=== PATIENT | male | born 1970 | race Two or more races ===

== ENCOUNTER 2021-03-26 20:39 | Emergency (ER) | payer SELFPAY ==
[~2021-03-26] VITALS: Ht 177.8 cm; Wt 79.5 kg
[2021-03-26] MEDS ORDERED: OMEP20CA16 PO (21:02)
[2021-03-26 21:24] LABS: BASO % 1 % (0-3); EOS % 0 % (0-3); HEMATOCRIT 41.1 % (39.0-53.0); LYMPH % 19 % (24-48); MEAN CORPUSCULAR HEMOGLOBIN 28 pg (25-35); MEAN CORPUSCULAR HGB CONC 34 g/dL (31-37); MEAN CORPUSCULAR VOLUME 83 fL (79-100); MONO # 0.6 x10^3/uL (0.0-1.1); MONO % 12 % (0-9); NEUT # 3.5 x10^3/uL (1.8-7.7); NEUT % 68 % (31-73); PLATELET COUNT 224 x10^3/uL (140-400); RED BLOOD COUNT 4.97 x10^6/uL (4.30-5.70); RED CELL DISTRIBUTION WIDTH 13.9 % (11.5-14.5); WHITE BLOOD COUNT 5.1 x10^3/uL (4.0-11.0)
[2021-03-26 21:32] LABS: CALCIUM 8.3 mg/dL (8.5-10.1); CREATININE 0.9 mg/dL (0.7-1.3); GFR 89.7; POTASSIUM 3.3 mmol/L (3.5-5.1)
[2021-03-26 21:39] LABS: ALBUMIN 3.6 g/dL (3.4-5.0); ALBUMIN/GLOBULIN RATIO 1.2 (1.0-1.7); TOTAL BILIRUBIN 0.2 mg/dL (0.2-1.0); TOTAL PROTEIN 6.6 g/dL (6.4-8.2)
--- NOTE | 2021-03-26 21:50 | PHYS DOC ---
Past Medical History Past Medical History: GERD Additional Past Medical Histor: "LOWER BACK DISC HAS A CYST" (SNEHAL MONAHAN LIFT SLAB OPERATOR) Past Surgical History: No Surgical History (SNEHAL MONAHAN LIFT SLAB OPERATOR) Smoking Status: Never Smoker Alcohol Use: None (SNEHAL MONAHAN APRN) General Adult EDM: Chief Complaint: CHEST PAIN-CARDIAC NATURE HPI: HPI: Patient is a 50 year old male who presents with for 2 months he has had off and on chest pain that has now worsened to being more sharp and goes back into the upper back, nausea and vomiting and headache. He states he has had fevers off and on. He states the vomiting has been more so in the last week. Patient states he is also feeling dizzy. The patient's family member states that when he was vomiting day he almost passed out. He states his head hurts in the front forehead part of his head. He rates his pain a 7 out of 10. He has not taken anything for pain today. He states he takes omeprazole every day but that is it. He states that he has a history of GERD, a cyst on his spine. (SNEHAL MONAHAN LIFT SLAB OPERATOR) Review of Systems: Review of Systems: Constitutional: + fever or chills. [] Eyes: Denies change in visual acuity. [] HENT: Denies nasal congestion or sore throat. [] Respiratory: Denies cough or shortness of breath. [] Cardiovascular: + chest pain or denies edema. [] GI: Denies abdominal pain, +nausea, +vomiting, bloody stools or diarrhea. [] : Denies dysuria. [] Musculoskeletal: +Upper back pain or denies joint pain. [] Integument: Denies rash. [] Neurologic: + headache, focal weakness or sensory changes. + Dizziness [] Endocrine: Denies polyuria or polydipsia. [] Lymphatic: Denies swollen glands. [] Psychiatric: Denies depression or anxiety. [] (SNEHAL MONAHAN LIFT SLAB OPERATOR) Heart Score: C/O Chest Pain: Yes HEART Score for Chest Pain: HEART Score for Chest Pain Response (Comments) Value History Slighlty/Non-Suspicious 0 ECG Normal 0 Age >45 - < 65 1 Risk Factors 1 or 2 Risk Factors 1 Troponin < Normal Limit 0 Total 2 Risk Factors: Risk Factors: DM, Current or recent (<one month) smoker, HTN, HLP, family history of CAD, obesity. Risk Scores: Score 0 - 3: 2.5% MACE over next 6 weeks - Discharge Home Score 4 - 6: 20.3% MACE over next 6 weeks - Admit for Clinical Observation Score 7 - 10: 72.7% MACE over next 6 weeks - Early Invasive Strategies (SNEHAL MONAHAN APRN) C/O Chest Pain: N/A (DUYEN HOBBS MD) Current Medications: Current Medications Medications (Trade) Dose Ordered Sig/Usman Start Time Stop Time Status Last Admin Dose Admin Famotidine (Pepcid Vial) 20 mg 1X ONCE 03/26/21 21:45 03/26/21 21:46 UNV Fentanyl Citrate (Fentanyl 2ml Vial) 50 mcg 1X ONCE 03/26/21 21:45 03/26/21 21:46 UNV (SNEHAL MONAHAN APRN) Allergies: Allergies: Allergies Coded Allergies Type Severity Reaction Last Updated Verified No Known Drug Allergies 03/26/21 No (SNEHAL MONAHAN APRN) Physical Exam: PE: Constitutional: Well developed, well nourished, no acute distress, non-toxic appearance. [] HENT: Normocephalic, atraumatic, bilateral external ears normal, oropharynx moist, no oral exudates, nose normal. [] Eyes: PERRLA, EOMI, conjunctiva normal, no discharge. [] Neck: Normal range of motion, no tenderness, supple, no stridor. [] Cardiovascular:Heart rate regular rhythm, no murmur [] Lungs & Thorax: Bilateral breath sounds clear to auscultation [] Abdomen: Bowel sounds normal, soft, no tenderness, no masses, no pulsatile masses. [] Skin: Warm, dry, no erythema, no rash. [] Back: No tenderness, no CVA tenderness. [] Extremities: No tenderness, no cyanosis, no clubbing, ROM intact, no edema. [] Neurologic: Alert and oriented X 3, normal motor function, normal sensory function, no focal deficits noted. [] Psychologic: Affect normal, judgement normal, mood normal. Normal physical exam [] (SNEHAL MONAHAN APRN) Current Patient Data: Labs: Laboratory Tests Test 03/26/21 21:14 White Blood Count 5.1 x10^3/uL (4.0-11.0) Red Blood Count 4.97 x10^6/uL (4.30-5.70) Hemoglobin 14.0 g/dL (13.0-17.5) Hematocrit 41.1 % (39.0-53.0) Mean Corpuscular Volume 83 fL (79-100) Mean Corpuscular Hemoglobin 28 pg (25-35) Mean Corpuscular Hemoglobin Concent 34 g/dL (31-37) Red Cell Distribution Width 13.9 % (11.5-14.5) Platelet Count 224 x10^3/uL (140-400) Neutrophils (%) (Auto) 68 % (31-73) Lymphocytes (%) (Auto) 19 % (24-48) L Monocytes (%) (Auto) 12 % (0-9) H Eosinophils (%) (Auto) 0 % (0-3) Basophils (%) (Auto) 1 % (0-3) Neutrophils # (Auto) 3.5 x10^3/uL (1.8-7.7) Lymphocytes # (Auto) 1.0 x10^3/uL (1.0-4.8) Monocytes # (Auto) 0.6 x10^3/uL (0.0-1.1) Eosinophils # (Auto) 0.0 x10^3/uL (0.0-0.7) Basophils # (Auto) 0.0 x10^3/uL (0.0-0.2) Sodium Level 139 mmol/L (136-145) Potassium Level 3.3 mmol/L (3.5-5.1) L Chloride Level 104 mmol/L (98-107) Carbon Dioxide Level 27 mmol/L (21-32) Anion Gap 8 (6-14) Blood Urea Nitrogen 17 mg/dL (8-26) Creatinine 0.9 mg/dL (0.7-1.3) Estimated GFR (Cockcroft-Gault) 89.7 BUN/Creatinine Ratio 19 (6-20) Glucose Level 106 mg/dL (70-99) H Calcium Level 8.3 mg/dL (8.5-10.1) L Total Bilirubin 0.2 mg/dL (0.2-1.0) Aspartate Amino Transferase (AST) 19 U/L (15-37) Alanine Aminotransferase (ALT) 24 U/L (16-63) Alkaline Phosphatase 87 U/L (46-116) Troponin I Quantitative < 0.017 ng/mL (0.000-0.055) VG-Vsn-C-Type Natriuretic Peptide 15 pg/mL (0-124) Total Protein 6.6 g/dL (6.4-8.2) Albumin 3.6 g/dL (3.4-5.0) Albumin/Globulin Ratio 1.2 (1.0-1.7) Lipase 60 U/L (73-393) L Laboratory Tests 03/26/21 21:14 Laboratory Tests 03/26/21 21:14 Vital Signs: Vital Signs Date Time Temp Pulse Resp B/P (MAP) Pulse Ox O2 Delivery O2 Flow Rate FiO2 03/26/21 20:45 98.0 84 18 118/78 (91) 96 Room Air 98.0 (SNEHAL MONAHAN APRN) EKG: EK read by Dr. Hobbs as sinus rhythm and no STEMI [] (SNEHAL MONAHAN APRN) Radiology/Procedures: Radiology/Procedures: [] Impression: [address] [id number] IMAGING REPORT Signed PATIENT: CECI HOGAN ACCOUNT: [id number] : 1970 LOCATION: ER AGE: 50 SEX: M EXAM STATUS: REG ER ORD. PHYSICIAN: SNEHAL MONAHAN APRN REASON: chest pain PROCEDURE: PORTABLE CHEST 1V XR CHEST 1V Clinical Indication: Reason: chest pain / Comparison: None. Findings: The cardiomediastinal silhouette is normal. Lungs are clear. There is no pneumothorax. No pleural effusion is appreciated. No acute bone abnormality. IMPRESSION: No acute cardiopulmonary process. Electronically signed by: Zhang Guardado MD (03/26/2021 10:55 PM) [facility] DICTATED and SIGNED BY: ZHANG GUARDADO MD DATE: 03/26/21 [id number] [address] IMAGING REPORT Signed PATIENT: CECI HOGAN ACCOUNT: [id number] : 1970 LOCATION: ER AGE: 50 SEX: M EXAM STATUS: REG ER ORD. PHYSICIAN: SNEHAL MONAHAN APRN REASON: dizziness, headache PROCEDURE: CT HEAD WO CONTRAST CT Head W/O Contrast: History: Reason: dizziness, headache / Spl. Instructions: / History: Comparison: none Axial images were obtained without contrast. There is a punctate calcification within the sulci over the left frontoparietal lobe. The dhillon and white matter appears normal and symmetrical for the patients age. There is no mass effect, extraaxial fluid collections or hydrocephalus. There is no gross bleed. There is no focal loss of dhillon-white matter distinction to suggest acute ischemia, i.e. stroke. Impression: No acute findings. RS Compliance Statement: One or more of the following individualized dose reduction techniques were utilized for this examination: 1. Automated exposure control 2. Adjustment of the mA and/or kV according to patient size 3. Use of iterative reconstruction technique Electronically signed by: Joan Gamboa III, MD (03/26/2021 11:12 PM) [facility] DICTATED and SIGNED BY: JOAN GAMBOA III, MD DATE: 03/26/21 [id number] [facility] [address] [place] [address] IMAGING REPORT Signed PATIENT: CECI HOGAN ACCOUNT: [id number] : 1970 LOCATION: ER AGE: 50 SEX: M EXAM STATUS: REG ER ORD. PHYSICIAN: SNEHAL MONAHAN APRN REASON: chest pain radiating to back, OMNI 350, 100 ML IV PROCEDURE: CT ANGIO CHEST W ABD PEL W/ Exam: CT of chest, abdomen and pelvis with contrast INDICATION: Chest pain, radiating to back TECHNIQUE: Sequential axial images through the chest, abdomen and pelvis obtained following the administration of 100 mL of Isovue-370 IV contrast. Sag ittal and coronal reformatted images were reconstructed from the axial data and reviewed. 3-D reformatted images were reconstructed from the axial data and reviewed. Exposure: One or more of the following in the visualized dose reduction techniques were utilized for this examination: 1. Automated exposure control 2. Adjustment of the MA and/or KV according to patient size 3. Use of iterative of reconstructive technique Comparisons: Chest x-ray same day FINDINGS: Visualized portions of the thyroid are unremarkable. No enlarged mediastinal lymph nodes. Heart size is normal. No pericardial effusion. Thoracic aorta has a normal course and caliber. Pulmonary artery is not enlarged. No pulmonary embolus identified within the main, lobar or segmental pulmonary arteries. Airways are patent. No consolidation or pneumothorax. No suspicious lung nodules. No pleural effusion or thickening. Liver, spleen, pancreas, gallbladder and adrenals are unremarkable. No perinephric inflammation or hydronephrosis. No renal or ureteral calculi are identified. Bladder is partially distended and not well evaluated. Prostate is not enlarged. Large and small bowel are unremarkable. Appendix is normal. No free intra- abdominal air or fluid. No obstruction. Abdominal aorta has a normal course and caliber. Abdominal vasculature is patent. No enlarged intra-abdominal lymph nodes are identified. No suspicious osseous lesions or acute fractures. IMPRESSION: 1. No pulmonary embolus identified within the main, lobar or segmental pulmonary arteries. 2. No acute process identified within the abdomen or pelvis. Electronically signed by: Binu Evans MD (03/26/2021 11:21 PM) [facility] DICTATED and SIGNED BY: BINU EVANS MD DATE: 03/26/21 [id number] (SNEHAL MONAHAN APRN) Course & Med Decision Making: Course & Med Decision Making Pertinent Labs and Imaging studies reviewed. (See chart for details) See HPI. Alert and oriented x4. Ambulatory with a steady gait. Speaks in full complete sentences. Mid chest sharp pain. The pain is not reproducible. Lungs are clear to auscultation all lobes. Skin pink warm and dry. Abdomen is soft and nontender. Patient's daughter is in the room interpreting for the patient as he is Occitan-speaking. [] (SNEHAL MONAHAN APRN) Course & Med Decision Making Patient stating he only had dizziness when he was at work, denies any since been emergency department. Patient tolerating p.o. (DUYEN HOBBS MD) Messi Disclaimer: Dragshon Disclaimer: This electronic medical record was generated, in whole or in part, using a voice recognition dictation system. (SNEHAL MONAHAN APRN) Departure Departure Impression: Primary Impression: Vertigo Disposition: 01 HOME / SELF CARE / HOMELESS Condition: STABLE Referrals: UNKNOWN PCP NAME (PCP) Patient Instructions: Vertigo SNEHAL MONAHAN APRN March 26, 2021 21:50 DUYEN HOBBS MD March 26, 2021 23:54
[2021-03-26] MEDS ORDERED: FAMOTIDINE 20 MG/2 ML VIAL IVP ONE (22:00)
[2021-03-26] MEDS ORDERED: fentaNYL PF VIAL 100 MCG/2 ML VIAL IVP ONE (22:00)
--- NOTE | 2021-03-26 22:01 | EKG ---
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
[2021-03-26] MEDS ORDERED: CONTRAST GIVEN. MC PRN (22:30)
--- NOTE | 2021-03-26 22:50 | EKG ---
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
--- NOTE | 2021-03-26 22:58 | RAD ---
XR CHEST 1V Clinical Indication: Reason: chest pain / Comparison: None. Findings: The cardiomediastinal silhouette is normal. Lungs are clear. There is no pneumothorax. No pleural eff usion is appreciated. No acute bone abnormality. IMPRESSION: No acute cardiopulmonary process. Electronically signed by: Zhang Guardado MD (03/26/2021 10:55 PM) [facility]
[2021-03-26] MEDS ORDERED: IV NORMAL SALINE 1000ML BAG 1,000 ML IV ONE (23:00)
[2021-03-26] MEDS: IOHEXOL 300 MG/ML 100ML VIAL. IV ONE ×2 (23:04→23:20)
[2021-03-26] MEDS ORDERED: IOHEXOL 350 MG/ML 100 ML VIAL. ONE (23:13)
--- NOTE | 2021-03-26 23:15 | RAD ---
CT Head W/O Contrast: History: Reason: dizziness, headache / Spl. Instructions: / History: Comparison: none Axial images were obtained without contrast. There is a punctate calcification within the sulci over the left frontoparietal lobe. The dhillon and white matter appears normal and symmetrical for the patients age. There is no mass effe ct, extraaxial fluid collections or hydrocephalus. There is no gross bleed. There is no focal loss of dhillon-white matter distinction to suggest acute ischemia, i.e. stroke. Impression: No acute findings. PQRS Compliance Statement: One or more of the following individualized dose reduction techniques were utilized for this examinat ion: 1. Automated exposure control 2. Adjustment of the mA and/or kV according to patient size 3. Use of iterative reconstruction technique Electronically signed by: Alan Peters III, MD (03/26/2021 11:12 PM) [facility]
--- NOTE | 2021-03-26 23:23 | RAD ---
Exam: CT of chest, abdomen and pelvis with contrast INDICATION: Chest pain, radiating to back TECHNIQUE: Sequential axial images through the chest, abdomen and pelvis obtained following the admin istration of 100 mL of Isovue-370 IV contrast. Sagittal and coronal reformatted images were reconstru cted from the axial data and reviewed. 3-D reformatted images were reconstructed from the axial data and reviewed. Exposure: One or more of the following in the visualized dose reduction techniques were utilized for this examination: 1. Automated exposure control 2. Adjustment of the MA and/or KV according to patient size 3. Use of iterative of reconstructive technique Comparisons: Chest x-ray same day FINDINGS: Visualized portions of the thyroid are unremarkable. No enlarged mediastinal lymph nodes. Heart size is normal. No pericardial effusion. Thoracic aorta has a normal course and caliber. Pulmon juanita artery is not enlarged. No pulmonary embolus identified within the main, lobar or segmental pulmo nary arteries. Airways are patent. No consolidation or pneumothorax. No suspicious lung nodules. No pleural effusion or thickening. Liver, spleen, pancreas, gallbladder and adrenals are unremarkable. No perinephric inflammation or hydronephrosis. No renal or ureteral calculi are identified. Bladder is partially distended and not well evaluated. Prostate is not enlarged. Large and small bowel are unremarkable. Appendix is normal. No free intra-abdominal air or fluid. No obstruction. Abdominal aorta has a normal course and caliber. Abdominal vasculature is patent. No enlarged intra-abdominal lymph nodes are identified. No suspicious osseous lesions or acute fractures. IMPRESSION: 1. No pulmonary embolus identified within the main, lobar or segmental pulmonary arteries. 2. No acute process identified within the abdomen or pelvis. Electronically signed by: Binu Marx MD (03/26/2021 11:21 PM) [facility]
[2021-03-26] MEDS ORDERED: MECLIZINE HCL 12.5 MG TABLET. PO ONE (23:45)
[2021-03-27 00:13] LABS: BILIRUBIN,URINE NEGATIVE (NEG); CLARITY,URINE CLEAR; COLOR,URINE YELLOW; NITRITE,URINE NEGATIVE (NEG); PROTEIN,URINE NEGATIVE (NEG-TRACE)
[2021-03-27 00:15] LABS: BARBITURATES NEG (NEG); BENZODIAZEPINES NEG (NEG); CANNABINOIDS NEG (NEG); COCAINE NEG (NEG); METHADONE NEG (NEG); OPIATES NEG (NEG); PHENCYCLIDINE NEG (NEG)
[2021-03-27 00:17] LABS: BACTERIA,URINE 0 /HPF (0-FEW); WBC,URINE 0 /HPF (0-4)
[2021-03-27 00:20] LABS: AMPHETAMINE/METHAMPHETAMINE NEG (NEG)
[2021-03-27 01:00] VITALS: BP 98/52
== END 2021-03-27 00:53 | disposition home or self-care (01) ==
LOC: ER 20:39
DX: R42 Dizziness and giddiness (principal); R07.89 Other chest pain; R11.2 Nausea with vomiting, unspecified; R51.9 Headache, unspecified; R50.9 Fever, unspecified; K21.9 Gastro-esophageal reflux disease without esophagitis
CPT/HCPCS: 36415; 70450; 71045; 71275; 74177; 80053; 80307; 81001; 83690; 83880; 84484; 85025; 93005; 96361; 96374; 96375; 99285; J3010; J3490; J7030; J8597; Q9967